=== PATIENT | male | born 2000 | race Caucasian/White ===

== ENCOUNTER 2024-04-25 08:36 | Emergency (ER) | payer OTHER, SELFPAY ==
[2024-04-25 08:42] VITALS: BP 143/67; PULSE 83; RESP 20; TEMP 37.6; O2SAT 100
--- NOTE | 2024-04-25 09:09 | ED.SKABFB ---
HPI - Skin/Abscess/Foreign Bdy General Chief complaint: Skin/Abscess/Foreign Body Stated complaint: Rash on legs Source: patient Mode of arrival: ambulatory Limitations: no limitations History of Present Illness HPI narrative: 23-year-old male presented for complaint of redness and skin irritation to the front of bilateral lower legs. Onset yesterday. He states he is concerned for irritation from saw dust, after cutting down a barn yesterday. Has taken ibuprofen and applied aloe and cool compresses with temporary relief. Denies any other skin concerns. denies oozing, itching or pain. Related Data Allergies Allergy/AdvReac Type Severity Reaction Status Date / Time No Known Allergies Allergy Verified 04/25/24 08:51 Review of Systems Review of Systems: CONSTITUTIONAL: Denies body aches, fever, chills, or sweats. EYES: Denies visual changes, redness, or discharge. ENT: Denies rhinorrhea, congestion CARDIOVASCULAR: Denies chest pain, palpitations, or edema. RESPIRATORY: Denies cough or dyspnea. GASTROINTESTINAL: Denies abdominal pain, nausea, vomiting, or diarrhea. SKIN: Reports rash MUSCULOSKELETAL: Denies back pain, joint pain, or myalgia. NEUROLOGIC: Denies headache, numbness, tingling, or weakness. PMFSH Comments At time of signature, I have reviewed and agree with nursing past medical, surgical, social and family history unless otherwise noted. Please see nursing chart for further information. There is no relevant family history pertinent to the presenting complaint Exam Narrative: GENERAL: Well-appearing HEAD: Normocephalic, atraumatic. EYES: conjunctivae clear, and EOMI. ENT: Mucous membranes moist. Oropharynx without edema, erythema or lesions. NECK: Supple. No lymphadenopathy CHEST: Clear to auscultation. HEART: Regular rate and rhythm. SKIN: Warm, dry. skin to bilateral lower legs appears mildly erythematous, no warmth, no vesicles or fluctuance noted. Most consistent with sunburn. No apparent rash. NEURO: Alert and oriented x3. Course Course Emergency Course: Patient is aware of diagnosis, understands and agrees to treatment plan. Anticipatory guidance given. Patient agrees to follow-up as directed and is aware of reasons to seek care at the emergency department. Portions of this record may have been created with voice recognition software Level of Care: Express Care Visit Vital Signs Vital signs: Vital Signs Temperature 99.6 F 04/25/24 08:42 Pulse Rate 83 04/25/24 08:42 Respiratory Rate 20 04/25/24 08:42 Blood Pressure 143/67 H 04/25/24 08:42 Pulse Oximetry 100 04/25/24 08:42 Oxygen Delivery Room Air 04/25/24 08:42 Temperature 99.6 F 04/25/24 08:42 Pulse Rate 83 04/25/24 08:42 Respiratory Rate 20 04/25/24 08:42 Blood Pressure 143/67 H 04/25/24 08:42 Pulse Oximetry 100 04/25/24 08:42 Oxygen Delivery Room Air 04/25/24 08:42 Reviewed MDM - Skin/Abscess/Foreign Bdy MDM Narrative Medical decision making narrative: Patient presented for complaint of irritation to lower legs. Onset yesterday. presentation is most consistent with sunburn, however will cover for possible contact dermatitis Given his outdoor exposure yesterday. Discussed physical exam findings. Advised supportive measures and signs/symptoms to go to the ER. Pt is appropriate for outpt treatment and f/u. Differential Diagnosis Differential diagnosis: Likely abscess of skin or subcutaneous tissue, urticaria, herpes zoster, cellulitis and contact dermatitis Discharge Plan Discharge Clinical Impression: Dermatitis Patient Disposition: Home, Self-Care Condition: Stable Instructions: Antibiotic Form, Dermatitis (ED) Additional Instructions: take medication as directed Wash the area with gentle soap and water only. Aloe Vera with lidocaine as needed Use skin cream such as Benadryl or hydrocortisone according to package directions for itching Avoi
== END 2024-04-25 09:15 | disposition home or self-care (01) ==
PROVIDERS: Emergency Provider Nurse Practitioner Family
DX: L30.9 Dermatitis, unspecified (principal)
CPT/HCPCS: 99213; G0463